=== PATIENT | male | born 1960 | race Caucasian/White ===

== ENCOUNTER 2022-07-26 13:27 | Emergency (ER) | payer BC, SELFPAY ==
[2022-07-26 13:29] VITALS: BP 154/119; PULSE 117; RESP 16; TEMP 35.9; O2SAT 98; BMI 29.4
--- NOTE | 2022-07-26 13:47 | ED.VIS.BACK ---
HPI <Dr. Naif Monson MD - Last Filed: 08/02/22 13:49> History of Present Illness Chief Complaint: Back Detail of Chief Complaint: Left lower back pain with sciatica and numbness foot Informant: patient and spouse/S.O. Onset/Context/Timing Onset: Days (Onset Tuesday) Context: Sudden Onset Chronic pain exacerbated by: Searing pain Injury: - (No history of trauma) Timing: Continuous Quality: - (Seery) Location: Lumbar, Left Leg and - (Sciatica) Current Severity: Moderate Maximum Severity: Severe Worsened by: improves with Movement Relieved by: Nothing Associated Symptoms Associated Symptoms: Numbness (Numbness in the L5-S1 dermatome) and Radiation to Left Leg; Negative for Fever, Abdominal Pain, Dysuria, Unable to Ambulate, Unable to Transfer, Urinary Retention, Urinary Incontinence, Constipation or Fecal Incontinence Narrative Narrative: Patient is a 61-year-old male who presents with back pain. He has been seen by Dr. Shah\spine surgeon. He denies bowel bladder dysfunction. He denies saddle paresthesia or anesthesia. He does have pain consistent with sciatica on the left. He reports numbness in the area of the L5-S1 dermatome. He is having difficulty walking. There is no history of fever. There is no history of trauma. He has had prior back surgery. He has had no recent dental procedure. He denies fever, chills, night sweats or weight loss Prior similar symptoms: Yes Recent Illness/Hospitalization: No PFSH <Dr. Naif Monson MD - Last Filed: 08/02/22 13:49> PFSH Medical History (Updated 07/26/22 @ 20:[address] Ilia Yoon MD) Sciatic leg pain Medical History no medical history no medical history Home Medications hydrocodone-acetaminophen 5-325mg 5mg-325mg 2 tab PO Q4H PRN PRN Pain 3 days #20 TABLETS 07/26/22 [Rx Last Taken Unknown] Allergy/AdvReac Type Severity Reaction Status Date / Time No Known Allergies Allergy Verified 07/26/22 13:29 Family History no significant family his no significant family history Social History (Updated 07/26/22 @ 13:[address] Naif Monson MD) household members: spouse Smoking Status: Never smoker substance use type: does not use ROS <Dr. Naif Monson MD - Last Filed: 08/02/22 13:49> ROS ED Constitutional Constitutional ED: Denies chills, fever(s), subjective, sweats or weight loss Eyes Eyes: Denies change in vision Cardiovascular Cardiovascular: Denies chest pain or palpitations Respiratory/Chest Respiratory/Chest: Denies dyspnea or dyspnea on exertion Gastrointestinal Gastrointestinal: Denies abdominal pain, diarrhea, nausea or vomiting Genitourinary Genitourinary ED: Denies dysuria, hematuria or urinary frequency Musculoskeletal Musculoskeletal: Reports back pain; Denies arthralgias, myalgias or neck pain Integumentary Denies rash Neurologic Neurologic: Reports paresthesias and weakness; Denies headache(s) EXAM <Dr. Naif Monson MD - Last Filed: 08/02/22 13:49> Physical Exam Const Vital Signs: 07/26/22 13:29 07/26/22 17:02 Temperature 96.6 F L Temperature Source Temporal Pulse Rate 117 H 69 Respiratory Rate 16 16 Blood Pressure 154/119 H 137/96 H Blood Pressure Mean 130 109 Pulse Ox 98 99 Oxygen Delivery Method Room Air Room Air Positive well nourished and well developed Constitutional Narrative: Patient is heavyset. He appears uncomfortable. He is lying on his right side. General Appearance ED: well developed; Negative for pallor HEENT Reports moist mucous membranes HEENT Narrative: Atraumatic normocephalic. Ears normal. Nares patent. Mucosa moist. Eyes PERRL and EOMs intact bilaterally General Eye ED: Negative for pale conjunctiva or scleral icterus Neck no lymphadenopathy, supple and no JVD Resp normal respiratory effort and clear to auscultation bilaterally Cardio regular rhythm, S1 normal heart sound, S2 normal heart sound and no murmurs Rate: tachycardic GI normal to inspection, nondistended, normoactive bowel sounds, soft to palpation, non-tender, non-distended and no masses GI Narrative: There is no pulsatile mass. There is no abdominal bruit. Back/Spine normal to inspection Back/Spine Narrative: Straight leg test positive at 40 degrees left with positive bowstring sign. Negative crossover test. EHLs intact bilaterally. Altered sensation heel and proximal lateral roll left foot. Patellar reflex is 2+ and symmetric. Ankle reflexes 2+ on the right absent on the left. Patient has difficulty walking on his heels and unable to walk on his toes on the left. DP pulse is palpable and symmetric. There are no dermatologic lesions noted. General Back: Negative for CVA tenderness Extremity normal to inspection and no clubbing, cyanosis or edema General Extremety ED: Negative for edema or tenderness General Extremity: Negative for edema Neuro oriented x3 and No no sensory deficits noted Sensorium / Orientation: alert Deep Tendon Reflexes: Rt Patellar (L4): 2+, Lt Patellar (L4): 2+, Rt Ankle (S1): 2+ and Lt Ankle (S1): 0 Deep Tendon Reflexes Back: Rt Patellar (L4): 2+, Lt Patellar (L4): 2+, Rt Ankle (S1): 2+ and Lt Ankle (S1): 0 Plantar Reflex: Downgoing: bilateral Psych mental status grossly normal Skin no rashes or lesions noted and no wounds General Skin Exam: Negative for jaundice or pallor <Dr. Ilia Yoon MD - Last Filed: 07/26/22 21:02> Physical Exam Const Vital Signs: 07/26/22 13:29 07/26/22 17:02 Temperature 96.6 F L Temperature Source Temporal Pulse Rate 117 H 69 Respiratory Rate 16 16 Blood Pressure 154/119 H 137/96 H Blood Pressure Mean 130 109 Pulse Ox 98 99 Oxygen Delivery Method Room Air Room Air MDM <Dr. Naif Monson MD - Last Filed: 08/02/22 13:49> MDM MDM Narrative Medical decision making narrative: History and physical exam are suggestive of a L5-S1 nerve injury. Since this is acute since Tuesday and patients with a foot drop who are treated conservatively have a permanent foot drop. Patient was medicated with IV morphine and Toradol for his pain. He has no contraindication MRI. She has had prior back surgery MRI with and without contrast was ordered. After MRI results are available for review we will contact Dr. Shah his spine surgeon. Patient is presently on systemic steroids. I was informed by the hemodialysis technician that patient's MRI would occur at 1800. In light of this information we will notify the oncoming physician, Dr. Yoon, that he will need to make disposition once MRI results are back. Patient was made aware of this at 1442. Patient is resting much more comfortably after he was medicated. History & Record Review Discussion w/independent historian: Family Additional record(s) reviewed:: Other (Office records authored by Dr. Shah are not available for review.) Radiography Diagnostic Testing: Clinical Impression(s) from Imaging Studies Lumbar Spine MRI 07/26/22 18:38 IMPRESSION: Possible nerve sheath tumor S1 nerve root on the left versus local focal inflammatory change. Small local focal disc extrusion is difficult to exclude. Electronically Signed: Juan Ruiz MD at 20:06 EDT Reading Location ID and State: [facility] / [place] , Service support , <Dr. Ilia Yoon MD - Last Filed: 07/26/22 21:02> [facility] MDM Narrative Medical decision making narrative: History and physical exam are suggestive of a L5-S1 nerve injury. Since this is acute since Tuesday and patients with a foot drop who are treated conservatively have a permanent foot drop. Patient was medicated with IV morphine and Toradol for his pain. He has no contraindication MRI. She has had prior back surgery MRI with and without contrast was ordered. After MRI results are available for review we will contact Dr. Shah his spine surgeon. Patient is presently on systemic steroids. I was informed by the hemodialysis technician that patient's MRI would occur at 1800. In light of this information we will notify the oncoming physician, Dr. Yoon, that he will need to make disposition once MRI results are back. Patient was made aware of this at 1442. Patient is resting much more comfortably after he was medicated. Patient turned over to me from the morning physician Dr. Naif Monson. Patient's had an MRI of his lumbar spine with and without contrast. The radiologist cannot be specific if this is an inflammatory process, tumor on his nerve root or even disc protrusion. He has been given 2 different doses of morphine. Currently his pain is under control. He also received Toradol. Both lower extremities are neurovascularly intact at this time. Normal motor strength. Normal dorsi plantarflexion. No cauda equina or saddle anesthesia. Currently after pain meds he has a negative straight leg raise. Discussed MRI results of both he and his at bedside. Patient requested admission for pain control and further evaluation. Dr. Shah of orthopedic spine is evaluated his MRI. I offered the patient admission. Dr. Shah is going out of town will not be back till next week. Patient chose to be discharged home. He will be given a dose of morphine here. And improved prescription for hydrocodone. Follow-up with Dr. Shah next week. Return if intractable pain. Patient is also try to get him with his prior [facility] back surgeon, Dr. Terry Obando, when he spoke with them they could not get him in to be seen until mid-August. Radiography Diagnostic Testing: Clinical Impression(s) from Imaging Studies Lumbar Spine MRI 07/26/22 18:38 IMPRESSION: Possible nerve sheath tumor S1 nerve root on the left versus local focal inflammatory change. Small local focal disc extrusion is difficult to exclude. Electronically Signed: Juan Ruiz MD at 20:06 EDT Reading Location ID and State: [facility] / [place] , Service support , Discharge Plan Triage Chief Complaint: Back ED Provider: Naif Monson Dx/Rx/DC Orders Clinical Impression: Intractable back pain Instructions: ED Back Pain (Acute or Chronic), ED Sciatica Prescriptions: New hydrocodone-acetaminophen 5-325 mg tablet 2 tab PO Q4H PRN PRN (Reason: Pain) 3 Days Qty: 20 0RF Primary Care Provider: Taniya Sy NP Referrals: Edy Shah DO [Med Staff - Active Staff] - As soon as possible Taniya Sy NP, CNA [facility] [Primary Care Provider] - Activity Restrictions/Additional Instructions: Hydrocodone and Motrin for pain. Call and follow-up with Dr. Shah to be seen in his office soon as possible. Return to emergency department if unable to control the pain, bowel or bladder incontinence or leg weakness. Disposition Disposition: Home, Self Care Discharge Date/Time: 07/26/22 22:21
[2022-07-26] MEDS: Ketorolac 15 MG/ML Vial IV (14:07)
[2022-07-26] MEDS: Ondansetron 4 MG/2 ML Vial IV (14:07)
[2022-07-26] MEDS: morphine 8 MG/ML Syringe IV ×2 (14:08→17:13)
[2022-07-26 17:02] VITALS: BP 137/96; PULSE 69; RESP 16; O2SAT 99
--- NOTE | 2022-07-26 18:38 | MRI_ITS ---
STUDY: MRI LUMBAR SPINE WITH AND WITHOUT CONTRAST REASON FOR EXAM: Male, 61 years old. Absent left ankle reflex, foot drop, decreased sen -- Sensation L5/S1 dermatome and prior back surgery n TECHNIQUE: Standardized fat and water weighted pulse sequences were obtained in the sagittal and axial planes. IV CLARISCAN 18mL was administered for the contrast portion of the examination. COMPARISON: None FINDINGS: T12-L1: Normal endplates. Normal disc height, hydration and morphology. Normal bilateral facet joints. Normal central canal and bilateral lateral recesses. Normal bilateral intervertebral neural foramina. Normal lumbar lordosis. There is no substantial scoliosis. Normal conus medullaris that terminates at the L1 level. L1-2: Normal endplates. Normal disc height, hydration and morphology. Normal bilateral facet joints. Normal central canal and bilateral lateral recesses. Normal bilateral intervertebral neural foramina. L2-3: Normal endplates. Normal disc height, hydration and morphology. Normal bilateral facet joints. Normal central canal and bilateral lateral recesses. Normal bilateral intervertebral neural foramina. L3-4: Normal endplates. Normal disc height, hydration and morphology. Normal bilateral facet joints. Normal central canal and bilateral lateral recesses. Normal bilateral intervertebral neural foramina. L4-5: Normal endplates. Normal disc height, hydration and morphology. Hypertrophic bilateral facet joints. Normal central canal and bilateral lateral recesses. Moderate narrowing right greater than left bilateral intervertebral neural foramina. L5-S1: Left S1 [Nerve root appears enlarged with possible enhancement in the lateral recess. A small adjacent focal disc extrusion is difficult to exclude. Central thecal sac and right neural foramen is patent. Normal visualized sacral ala. Normal visualized paraspinous soft tissue structures. MRI/Spine Lumbar W/WO Contrast IMPRESSION: Possible nerve sheath tumor S1 nerve root on the left versus local focal inflammatory change. Small local focal disc extrusion is difficult to exclude. Electronically Signed: Juan Ruiz MD at 20:06 EDT ,
[2022-07-26] MEDS: morphine 8 MG/ML Syringe 6 MG IV (21:02)
== END 2022-07-26 22:21 | disposition home or self-care (01) ==
PROVIDERS: Emergency Provider Emergency Medicine; PCP Registered Nurse; Visit Provider Emergency Medicine
DX: M54.9 Dorsalgia, unspecified (principal); G89.29 Other chronic pain; R20.2 Paresthesia of skin
CPT/HCPCS: 72158; 96374; 96375; 96376; 99282; A9575; A4216; J2405